=== PATIENT | female | born 1985 | race African-American/Black ===

== ENCOUNTER → 2023-03-20 | Outpatient (CLI) | payer OTHER ==
[~2023-03-20] MED LIST: AFRI0.052; ANUS2.5C2 TOP; COLA100C5 PO; IBUP-1114 PO; MAPA500T2 PO; NUPE1OIN2 TOP; PRENTAB40 PO; PREPOI TOP; ZOLO100T PO
== END ==
LOC: M WHC 12:47
PROVIDERS: ATTEND Internal Medicine
DX: D48.62 Neoplasm of uncertain behavior of left breast (principal)

== ENCOUNTER → 2023-06-06 | Outpatient (CLI) | payer OTHER | LOC: M CARPUL 15:05 | PROVIDERS: ATTEND Internal Medicine Medical Oncology | DX: C50.912 Malignant neoplasm of unspecified site of left female breast (principal) ==

== ENCOUNTER → 2023-06-14 | Outpatient (CLI) | payer OTHER ==
[~2023-06-14] VITALS: Ht 177.8 cm; Wt 127.0 kg
[~2023-06-14] MED LIST changes: +LIDOCAINE 1% MDV 20ML VIAL As Ordered ONE; +LIDOCAINE W/EPINEPHRINE 1% 20ML VIAL As Ordered ONE; +MIDAZOLAM INJ 2MG/2ML VIAL As Ordered ONE; +ceFAZolin 1GM VIAL As Ordered ONE; +ceFAZolin 2 GM/D5W 50 ML IV BAG As Ordered ONE; +ceFAZolin SOD 1 GM in D5W MINI-BAG PLUS 50 ML IV ONE; +ceFAZolin SOD 2 GM in IV 1 EA IV ONE
[2023-06-14 08:19] VITALS: TEMP 97.4
[2023-06-14 08:34] LABS: HEMOGLOBIN 11.8 g/dl (12.0-15.5); MEAN CORPUSCULAR HEMOGLOBIN 31.5 pg (27.0-33.0); MEAN CORPUSCULAR HGB CONC 34.7 g/dl (32.0-36.5); MEAN CORPUSCULAR VOLUME 90.7 fl (80.0-96.0); PLATELET COUNT, AUTOMATED 252 10^3/uL (150-450); RED BLOOD COUNT 3.75 10^6/uL (4.00-5.40); WHITE BLOOD COUNT 8.6 10^3/uL (4.0-10.0)
[2023-06-14 08:46] LABS: PROTHROMBIN TIME 12.9 SECONDS (12.5-14.5)
[2023-06-14 10:45] VITALS: BP 124/71; O2SAT 100
== END ==
LOC: M IRPRO 08:10
PROVIDERS: ATTEND Internal Medicine Medical Oncology
DX: C50.912 Malignant neoplasm of unspecified site of left female breast (principal); Z17.0 Estrogen receptor positive status [ER+]; Z91.51 Personal history of suicidal behavior; Z79.899 Other long term (current) drug therapy
CPT/HCPCS: 36561; 85027; 85610; 99152; 99153; J0690; J2250

== ENCOUNTER → 2024-01-18 | Outpatient (CLI) | payer OTHER ==
[~2024-01-18] MED LIST changes: -LIDOCAINE 1% MDV 20ML VIAL As Ordered ONE; -LIDOCAINE W/EPINEPHRINE 1% 20ML VIAL As Ordered ONE; -MIDAZOLAM INJ 2MG/2ML VIAL As Ordered ONE; -ceFAZolin 1GM VIAL As Ordered ONE; -ceFAZolin 2 GM/D5W 50 ML IV BAG As Ordered ONE; -ceFAZolin SOD 1 GM in D5W MINI-BAG PLUS 50 ML IV ONE; -ceFAZolin SOD 2 GM in IV 1 EA IV ONE
== END ==
LOC: M ONCR 11:05
PROVIDERS: ATTEND General Practice
DX: C50.412 Malignant neoplasm of upper-outer quadrant of left female breast (principal); I89.0 Lymphedema, not elsewhere classified; Z79.899 Other long term (current) drug therapy; Z80.1 Family history of malignant neoplasm of trachea, bronchus and lung; Z90.12 Acquired absence of left breast and nipple; Z92.21 Personal history of antineoplastic chemotherapy

== ENCOUNTER 2024-02-14 10:33 | Outpatient (RCR) | payer OTHER | END 2024-02-25 | LOC: M ONCR 10:33 | PROVIDERS: ATTEND General Practice | DX: Z51.0 Encounter for antineoplastic radiation therapy (principal); C50.412 Malignant neoplasm of upper-outer quadrant of left female breast ==

== ENCOUNTER → 2024-03-27 | Outpatient (RCR) | payer OTHER | LOC: M ONCR 02-27 13:14 | PROVIDERS: ATTEND General Practice | DX: Z51.0 Encounter for antineoplastic radiation therapy (principal); C50.412 Malignant neoplasm of upper-outer quadrant of left female breast ==

== ENCOUNTER 2024-04-04 10:23 | Outpatient (RCR) | payer OTHER | END 2024-04-26 | LOC: M ONCR 10:23 | PROVIDERS: ATTEND General Practice | DX: Z51.0 Encounter for antineoplastic radiation therapy (principal); C50.412 Malignant neoplasm of upper-outer quadrant of left female breast ==

== ENCOUNTER → 2024-08-12 | Outpatient (CLI) | payer OTHER | LOC: M WHC 10:41 | PROVIDERS: ATTEND Nurse Practitioner Family | DX: Z79.818 Long term (current) use of other agents affecting estrogen receptors and estrogen levels (principal) ==

== ENCOUNTER → 2025-01-07 | Outpatient (CLI) | payer OTHER ==
[~2025-01-07] MED LIST changes: +ANAS1TAB2 PO; +RIBO1TAB PO; +[UNRECOGNIZED DRUG - CODE] IM
== END ==
LOC: M CARPUL 15:32
PROVIDERS: ATTEND Nurse Practitioner Family
DX: C50.912 Malignant neoplasm of unspecified site of left female breast (principal); Z92.3 Personal history of irradiation

== ENCOUNTER → 2025-05-13 | Outpatient (CLI) | payer OTHER | LOC: M WHC 07:34 | PROVIDERS: ATTEND Student in an Organized Health Care Education/Training Program | DX: C50.919 Malignant neoplasm of unspecified site of unspecified female breast (principal) ==